=== PATIENT | female | born 1985 | race Two or more races ===

== ENCOUNTER → 2024-12-25 | Outpatient (CLI) | payer MEDICAID, SELFPAY ==
--- NOTE | 2024-12-25 15:45 | XR_ITS ---
Examination: Screening digital mammography, bilateral Computer aided detection 3-D breast Tomosynthesis, bilateral Date and time of exam: December 25, 2024 1825 hours INDICATIONS: History right breast biopsy 2021 Comparison December 09, 2019 Indication: Screening Technique: Nonmagnified MLO, CC views of the breasts to been obtained, reconstructed from 3-D Tomosynthesis images. R2 computer aided detection program utilized for evaluation of suspicious masses and/or abnormal calcifications. 3-D Tomosynthesis images obtained. Findings: The breasts are heterogeneously dense, which may obscure small masses Benign calcifications No interval suspicious masses Skin lesion right breast Impression: BI-RADS category II: Benign Findings. Recommend 1 year follow-up mammogram.
== END | disposition home or self-care (01) ==
LOC: CDIM 15:08
PROVIDERS: Referring Provider Physician Assistant; Visit Provider Physician Assistant
DX: Z12.31 Encounter for screening mammogram for malignant neoplasm of breast (principal); R92.323 Mammographic fibroglandular density, bilateral breasts; R92.1 Mammographic calcification found on diagnostic imaging of breast
CPT/HCPCS: 77063; 77067

== ENCOUNTER 2025-04-19 14:47 | Emergency (ER) | payer MEDICAID, SELFPAY ==
[2025-04-19 15:06] VITALS: BP 150/93; PULSE 115; RESP 20; TEMP 36.7; O2SAT 95
--- NOTE | 2025-04-19 15:16 | XR_ITS ---
Examination: AP lateral chest 2 views Technique: AP lateral chest 2 views. Indications: Choking on food today. Date and time: April 19, 2025, 1528 hrs. Findings: Normal heart size. No aspiration pneumonia. The osseous structures are intact. Impression: Negative for aspiration pneumonia.
--- NOTE | 2025-04-19 15:16 | XR_ITS ---
Examination: AP lateral soft tissue neck 2 views Technique: AP lateral soft tissue neck 2 views Date and time: April 19, 2025, 1532 hrs. Indications: Choking on food today. Findings: No opaque foreign body. Normal epiglottis. No distention hypopharynx Impression: Negative for opaque foreign body
--- NOTE | 2025-04-19 15:17 | EDNOTE_ITS ---
ED Dental RME/HPI General Chief complaint: Dental/Oral/Throat Stated complaint: FEELS LIKE FOOD IS STUCK IN THROAT Time Seen by Provider: 04/19/25 15:11 Arrival date/time: 04/19/25 14:47 Limitations: no limitations RME / HPI RME / HPI Narrative: 40-year-old female here for episode of choking on her meal. States made herself throw up but was coughing. States suddenly felt like choking and is not the first episode. Has had intermittent episodes of choking or feeling of difficulty swallowing her food. No history of esophageal stricture. Has not had endoscopy ever. However she is s/p appendectomy and lap jamilah. No history of GERD. Related Data Home Medications ?Medication ?Instructions ?Recorded ?Confirmed ferrous sulfate 325 mg (65 mg 325 mg PO BID 07/10/18 0 10/19/20 iron) tablet (iron) folic acid 1 mg tablet 1 mg PO QDAY 07/10/18 labetalol 100 mg tablet 100 mg PO BID 07/10/1810/19 vit no.95-ferrous 1 tab PO QDAY 07/10/1810/10 fumarate 28 mg-folic acid 800 mcg tablet () Previous Rx's ?Medication ?Instructions ?Recorded docusate sodium 100 mg capsule 100 mg PO BID #60 caps 10/21/20 (Colace) hydrocodone 5 mg-acetaminophen 325 1 tab PO Q6H PRN pa in #30 tabs 10/21/20 mg tablet ibuprofen 600 mg tablet 600 mg PO QID PRN pain #20 t abs 08/11/22 Allergies Allergy/AdvReac Type Severity Reaction Status Date / Time No Known Allergies Allergy Verified 04/19/25 14:52 Review of Systems Review of Systems Systems Reviewed: All systems reviewed, normal except as documented Constitutional Constitutional: Denies fever(s) ENT Ears, Nose, Mouth, and Throat: Reports as per HPI Gastrointestinal Gastrointestinal: Reports as per HPI ED Exam General Limitations: Present no limitations General appearance: Present alert and in no apparent distress Eye Eye exam: Present normal appearance, PERRL and EOMI Respiratory Respiratory exam: Present normal lung sounds bilaterally Cardiovascular Cardiovascular exam: Present regular rate, normal rhythm and normal heart sounds Abdominal Exam Abdominal exam: Present soft and normal bowel sounds Extremities Exam Extremities exam: Present normal inspection and full ROM Back Exam Back exam: Present normal inspection and full ROM Psychiatric Psychiatric exam: Present normal affect and normal mood Skin Skin exam: Present warm, dry, intact and normal color Course Quality Measures none Orders Category Date Time Status XR chest 2V Stat Exams 04/19/25 15:16 Completed XR soft tissue neck Stat Exams 04/19/25 15:16 Completed CBC Stat Lab 04/19/25 16:10 Completed CMP [Comprehensive Metabolic Panel] Stat Lab 04/19/25 16:10 Completed HCG,Qualitative Serum Stat Lab 04/19/25 16:10 Completed Lipase Stat Lab 04/19/25 16:10 Completed Potassium Stat Lab 04/19/25 17:19 Ordered UA [Urinalysis] Stat Lab 04/19/25 15:45 Completed Famotidine [Pepcid] Med 04/19/25 15:16 Discontinued 40 mg PO X1 ONE Potassium Chloride [K-Dur] Med 04/19/25 17:19 Discontinued 20 meq PO X1 ONE Vital Signs Vital signs: Vital Signs Temperature 98.1 F 04/19/25 15:06 Pulse Rate 115 H 04/19/25 15:06 Respiratory Rate 20 04/19/25 15:06 Blood Pressure 150/93 H 04/19/25 15:06 Pulse Oximetry (%) 95 04/19/25 15:06 Oxygen Delivery Method Room Air 04/19/25 15:06 Dental / Oral Patient data External records reviewed:: [facility] previous records Clinical information provided by:: patient Social determinants that could affect healthcare access:: other (specify) Patient has the following chronic illnesses:: None How is presenting disease/condition affected by chronic disease/condition?: no chronic disease Evaluation data The following diagnostics were reviewed and interpreted by me:: lab results and radiology exam(s) Lab and/or radiology exams considered but not ordered:: Consider ultrasound however given status post left Melissa unlikely to be beneficial. And CT scan does not seem appropriate for complaint today Interpretation Summary: X-ray of soft tissue neck and chest within normal limits CBC within normal limits CMP did show hypokalemia, UA within normal limits Medications / Prescriptions Medications or Prescriptions considered but not ordered:: PPI was considered however episode resolved Medication administrations:: Medication Administration History Discontinued Medications Famotidine (Famotidine 20 Mg Tablet) 40 mg PO X1 ONE Stop: 04/19/25 15:17 Last Admin: 08/31/25 15:42 Dose: 40 mg Documented By: KRISTI Potassium Chloride (Potassium Chloride 20 Meq Tabcr) 20 meq PO X1 ONE Stop: 04/19/25 17:20 Last Admin: 04/19/25 17:27 Dose: 20 meq Documented By: KRISTI See above Consultations Consultation(s) initiated? (list below): No Diagnosis Dental Differential Diagnosis: other (GERD, pancreatitis, esophageal stricture, foreign body, aspiration pneumonia) Most likely diagnosis given after review of the tests above:: Choking episode Hypokalemia Dysphagia Admission Indicated Admission indicated?: not indicated Admission Request Was there a request for admission?: No Disposition Plan Disposition Plan: Discharge Discharge Attestation Discharge Attestation: The patient and all family members were given an opportunity to ask questions and understood the discharge instructions. Discharge instructions specifically effects, indications for sooner follow up or return to the emergency department, and the expected course of current diagnosis. Patient condition: Stable Discharge Plan Plan Patient Disposition: HOME (Self Care) Discharge Disposition comment: f/u with pcp in 2-3day for EGD referral Prescriptions/Referrals Prescriptions/Med Rec: No Action ferrous sulfate [iron] 325 mg (65 mg iron) Tablet 325 mg PO BID folic acid 1 mg Tablet 1 mg PO QDAY labetalol 100 mg Tablet 100 mg PO BID PNV no.95-ferrous fumarate-FA [] 28 mg iron- 800 mcg Tablet 1 tab PO QDAY hydrocodone-acetaminophen 5-325 mg tablet 1 tab PO Q6H MDD 6 PRN (Reason: pain) Qty: 30 0RF docusate sodium [Colace] 100 mg capsule 100 mg PO BID Qty: 60 0RF ibuprofen 600 mg tablet 600 mg PO QID PRN (Reason: pain) Qty: 20 0RF Referrals: Mirian Orona PA-C [Primary Care Provider] - In 1 week Problem List Clinical Impression: Dysphagia, Choking, Acute hypokalemia Patient/Caregiver Discharge Instructions Education Materials: ED Hypokalemia, ED Dysphagia (Adult) Print Language: Ivorian Stand Alone Forms: Yeni Award Info., Patient Portal Info Letter PA/TORI Supervising Physician PA/USER EXPERIENCE ARCHITECT Supervising Physician: Dr. Miller
[2025-04-19] MEDS: FAMOTIDINE 20 MG TABLET 40 MG PO (15:42)
[2025-04-19 16:02] LABS: Collection Type, Urine Clean Catch; RBC,Urine 0 /hpf (0-3)
[2025-04-19 16:42] LABS: Basophils # (Auto) 0.0 Thou/mm3 (0.0-0.2); Basophils % (Auto) 0 % (0-2.5); Eosinophils # (Auto) 0.1 Thou/mm3 (0.0-0.5); Eosinophils % (Auto) 0 % (0-10); Hematocrit 44.6 % (36.0-46.0); Hemoglobin 15.3 g/dL (12.0-16.0); Immature Granulocytes Auto 0.03 Thou/mm3 (0.00-0.00); Lymphocytes # (Auto) 1.9 Thou/mm3 (1.0-4.8); Lymphocytes % (Auto) 16 % (10-50); Mean Corpuscular HGB Conc 34.3 g/dl (31.0-37.0); Mean Corpuscular Hemoglobin 32.3 pg (25.0-35.0); Mean Corpuscular Volume 94 fL (80-100); Monocytes # (Auto) 0.7 Thou/mm3 (0.0-0.8); Monocytes % (Auto) 6 % (0-12); Neutrophils # (Auto) 8.8 Thou/mm3 (1.8-7.7); Neutrophils % (Auto) 77 % (37-80); Nucleated Red Blood Cell # 0.00 Thou/mm3 (0.00-0.00); Nucleated Red Blood Cell % 0 /100 WBC (0); Platelet Count 248 Thou/mm3 (140-440); RDW Standard Deviation 44.7 fL (36.4-46.3); Red Blood Count 4.73 Miln/mm3 (4.00-5.20); White Blood Count 11.4 Thou/mm3 (3.6-11.0)
[2025-04-19 16:51] LABS: Bilirubin,Urine Negative (Negative); Blood,Urine Trace (Negative); Clarity,Urine Clear (Clear/Hazy); Color,Urine Lt-Yellow (Lt Yel-Yel); Glucose, Urine 4+ (Negative); Ketones,Urine Negative (Negative); Leukocyte Esterase,Urine Negative (Negative); Nitrite,Urine Negative (Negative); PH,Urine 6.0 (5.0-7.0); Protein,Urine Negative (Neg - Trace); Specific Gravity,Urine 1.033 (1.001-1.035); Squamous Epithelial Cell,Urine 2 /hpf (0-5); Urobilinogen,Urine Negative mg/dL (0.0-1.0); WBC,Urine < 1 /hpf (0-5)
[2025-04-19 17:05] LABS: HCG,Qualitative Serum Negative
[2025-04-19 17:06] LABS: Alanine Aminotransferase 40 U/L (10-49); Albumin, Serum 4.6 gm/dL (3.5-5.0); Albumin/Globulin Ratio 1.8 (1.2-2.2); Alkaline Phosphatase 84 U/L (46-116); Anion Gap 11 (7-16); Aspartate Amino Transferase 25 U/L (0-34); BUN/Creatinine Ratio 17 Ratio (12-20); Bilirubin,Total 0.5 mg/dL (0.3-1.2); Blood Urea Nitrogen 15 mg/dL (9-23); Calcium 10.0 mg/dL (8.3-10.6); Calcium (Corrected) 10.0 mg/dL (8.5-10.1); Carbon Dioxide 28.2 mMol/L (20.0-31.0); Chloride 104 mMol/L (98-107); Creatinine (Component) 0.9 mg/dL (0.6-1.3); Estimated Creatinine Clearance 79.4 mL/min (>60); Globulin 2.5 gm/dL (2.3-3.5); Glucose 121 mg/dL (74-106); Lipase 27 U/L (12-53); Osmolality,Calculated 286 (275-295); Potassium 3.2 mMol/L (3.4-5.1); Sodium 143 mMol/L (136-145); Total Protein 7.1 gm/dL (5.7-8.2); eGFR > 60 See Note
[2025-04-19 17:33] VITALS: BP 122/69; PULSE 63; RESP 18; TEMP 36.7; O2SAT 98
== END 2025-04-19 17:33 | disposition home or self-care (01) ==
PROVIDERS: Physician Assistant; Emergency Provider Family Medicine; PCP Physician Assistant
DX: R09.89 Other specified symptoms and signs involving the circulatory and respiratory systems (principal); R13.10 Dysphagia, unspecified; E87.6 Hypokalemia
CPT/HCPCS: 36415; 70360; 71046; 80053; 81001; 82550; 83690; 84132; 84703; 85025; 99283; A9270

== ENCOUNTER → 2025-05-12 | Outpatient (CLI) | payer MEDICAID, SELFPAY ==
--- NOTE | 2025-05-12 11:30 | XR_ITS ---
Examination: Pelvic ultrasound, transabdominal, complete Technique: Transabdominal ultrasound of the pelvis performed using grayscale imaging Date and time of exam: May 12, 2025 1127 hours INDICATIONS: Vaginal bleeding beginning 4 months ago FINDINGS: Uterus 9.0 cm uterine body posterior area of fibroid degeneration 13 x 11 mm Right ovary 3.4 cm arterial flow, 18 mm, 13 mm cyst Left ovary obscured by bowel gas Endometrial stripe 0.6 cm IMPRESSION: Uterine body area of fibroid degeneration 13 x 8 x 11 mm, recommend 6 month follow-up transvaginal pelvic sonography
== END | disposition home or self-care (01) ==
PROVIDERS: PCP Physician Assistant; Referring Provider Physician Assistant; Visit Provider Physician Assistant
DX: D25.9 Leiomyoma of uterus, unspecified (principal)
CPT/HCPCS: 76856